=== PATIENT | male | born 1940 | race African-American/Black ===

== ENCOUNTER 2024-04-13 15:03 | Inpatient (IN) | payer OTHER ==
[~2024-04-13] VITALS: Ht 170.2 cm; Wt 50.3 kg
[2024-04-13] MEDS: SODIUM CHLORIDE 0.9% 1000ML BAG (SEPSIS BOLUS) IV ONE (15:58)
[2024-04-13 16:27] LABS: PROTHROMBIN TIME 11.4 sec (9.6-11.0)
[2024-04-13 16:31] LABS: CHLORIDE 108 mEq/L (98-107); POTASSIUM 3.3 mEq/L (3.5-5.1); SODIUM 144 mEq/L (136-145)
[2024-04-13 16:32] LABS: CALCIUM 8.8 mg/dL (8.7-10.4); CARBON DIOXIDE 26 mEq/L (21-32)
[2024-04-13 16:37] LABS: GLUCOSE 139 mg/dL (70-105); UREA NITROGEN BLOOD 15 mg/dL (9-23)
[2024-04-13 16:39] LABS: TROPONIN I HIGH SENSITIVITY 13 ng/L (3.0-53)
[2024-04-13 16:42] LABS: BASOPHILS % 0.8 % (0.0-2.0); EOSINOPHILS % 2.1 % (0.0-5.0); HEMATOCRIT. 32.6 % (42.0-52.0); HEMOGLOBIN. 10.9 g/dL (14.0-18.0); LYMPHOCYTES % 35.9 % (20.0-50.0); MEAN CORPUSCULAR HEMOGLOBIN 31.6 pg (28.0-32.0); MEAN CORPUSCULAR HGB CONC 33.3 g/dL (31.0-37.0); MEAN CORPUSCULAR VOLUME 95.1 fL (80.0-94.0); MEAN PLATELET VOLUME 11.1 fl (7.4-10.4); MONOCYTES % 11.1 % (2.0-8.0); NEUTROPHILS % 50.1 % (40.0-76.0); PLATELET 160 x1000/uL (130-400); RED BLOOD CELL COUNT 3.43 mill/uL (4.7-6.1); RED CELL DISTRIBUTION WIDTH 15.1 % (11.6-14.6); WHITE BLOOD COUNT 4.9 x1000/uL (4.5-11.0)
[2024-04-13] MEDS ORDERED: POTASSIUM CHLORIDE 20MEQ/PACKET PO ONE (18:15)
[2024-04-13] MEDS ORDERED: ACETAMINOPHEN 325MG TABLET PO PRN (20:15)
[2024-04-13] MEDS ORDERED: IPRATROPIUM/ALBUTEROL 0.5-3(2.5)MG/3ML NEB HHN PRN (20:15)
[2024-04-13] MEDS ORDERED: ONDANSETRON HCL 4MG/2ML INJ IV PRN (20:15)
[2024-04-13] MEDS ORDERED: DOCUSATE SODIUM 100MG CAPSULE PO PRN (20:15)
[2024-04-13] MEDS ORDERED: SODIUM CHLORIDE 0.9% 1,500 ML IV SCH (20:45)
[2024-04-13] MEDS: SODIUM CHLORIDE 0.9% 1,000 ML IV ONE (20:53)
[2024-04-13] MEDS: POTASSIUM CHLORIDE 20MEQ/PACKET PO NR (20:53)
[2024-04-14 04:00] VITALS: BP 144/96; PULSE 93; RESP 17; TEMP 36.50292; O2SAT 99
[2024-04-14 06:53] LABS: CHLORIDE 110 mEq/L (98-107); POTASSIUM 3.9 mEq/L (3.5-5.1); SODIUM 144 mEq/L (136-145)
[2024-04-14 06:54] LABS: CARBON DIOXIDE 24 mEq/L (21-32)
[2024-04-14 06:55] LABS: CALCIUM 9.1 mg/dL (8.7-10.4)
[2024-04-14 06:59] LABS: CREATININE 1.4 mg/dL (0.6-1.3); GLUCOSE 91 mg/dL (70-105)
[2024-04-14 07:00] LABS: UREA NITROGEN BLOOD 12 mg/dL (9-23)
[2024-04-14 07:01] LABS: ALANINE AMINOTRANSFERASE 35 IU/L (10-49); ALBUMIN 3.6 g/dL (3.2-4.8); ASPARTATE AMINOTRANSFERASE 59 IU/L (<34)
[2024-04-14 07:02] LABS: BILIRUBIN TOTAL 0.7 mg/dL (0.1-1.0); PROTEIN TOTAL 6.7 g/dL (6.0-8.3)
[2024-04-14 07:53] LABS: BASOPHILS % 0.9 % (0.0-2.0); EOSINOPHILS % 1.9 % (0.0-5.0); HEMATOCRIT. 37.4 % (42.0-52.0); HEMOGLOBIN. 12.3 g/dL (14.0-18.0); LYMPHOCYTES % 30.2 % (20.0-50.0); MEAN CORPUSCULAR HGB CONC 32.9 g/dL (31.0-37.0); MEAN CORPUSCULAR VOLUME 94.2 fL (80.0-94.0); MEAN PLATELET VOLUME 11.7 fl (7.4-10.4); MONOCYTES % 9.1 % (2.0-8.0); NEUTROPHILS % 57.9 % (40.0-76.0); PLATELET 162 x1000/uL (130-400); RED BLOOD CELL COUNT 3.97 mill/uL (4.7-6.1); RED CELL DISTRIBUTION WIDTH 14.7 % (11.6-14.6); WHITE BLOOD COUNT 5.7 x1000/uL (4.5-11.0)
[2024-04-14 12:50] VITALS: BP 134/90; PULSE 103; RESP 18; TEMP 36.44736; TEMP 36.4736; O2SAT 98
[2024-04-14 14:45] LABS: IRON 99 ug/dL (65-175)
[2024-04-14 14:48] LABS: TOTAL IRON BINDING CAPACITY 192 ug/dl (250-425)
[2024-04-14 15:04] LABS: FERRITIN 75 ng/mL (22-322); FOLIC ACID (FOLATE) SERUM 19.17 ng/mL (>5.38)
[2024-04-14 15:05] LABS: VITAMIN B12 SERUM 1112 pg/mL (211-911)
[2024-04-14 15:15] LABS: HEPATITIS B SURFACE ANTIGEN NEGATIVE (Negative)
[2024-04-14 15:37] LABS: HEPATITIS C AB NON REACTIVE (Neg) (Negative)
[2024-04-14 16:00] VITALS: BP 152/94; PULSE 79; RESP 16; TEMP 37.00296; O2SAT 97
[2024-04-14 20:00] VITALS: BP 180/102; PULSE 85; RESP 20; TEMP 36.50292; O2SAT 100
[2024-04-14] MEDS: CLONIDINE 0.1MG TABLET PO PRN (22:00)
[2024-04-14] MEDS: ACETAMINOPHEN 325MG TABLET PO PRN (22:01)
[2024-04-15] VITALS (8 sets, daily range): BP systolic 129–172; BP diastolic 78–97; PULSE 70–80; RESP 18–20; TEMP 35.78064–37.16964; O2SAT 96–100
[2024-04-15 06:06] LABS: BASOPHILS % 0.7 % (0.0-2.0); EOSINOPHILS % 2.3 % (0.0-5.0); HEMATOCRIT. 34.9 % (42.0-52.0); HEMOGLOBIN. 11.6 g/dL (14.0-18.0); LYMPHOCYTES % 41.3 % (20.0-50.0); MEAN CORPUSCULAR HEMOGLOBIN 31.5 pg (28.0-32.0); MEAN CORPUSCULAR HGB CONC 33.3 g/dL (31.0-37.0); MEAN CORPUSCULAR VOLUME 94.4 fL (80.0-94.0); MEAN PLATELET VOLUME 11.8 fl (7.4-10.4); MONOCYTES % 14.2 % (2.0-8.0); NEUTROPHILS % 41.5 % (40.0-76.0); PLATELET 158 x1000/uL (130-400); RED BLOOD CELL COUNT 3.69 mill/uL (4.7-6.1); RED CELL DISTRIBUTION WIDTH 14.7 % (11.6-14.6)
[2024-04-15 06:13] LABS: CARBON DIOXIDE 27 mEq/L (21-32); CHLORIDE 107 mEq/L (98-107); POTASSIUM 3.4 mEq/L (3.5-5.1); SODIUM 142 mEq/L (136-145)
[2024-04-15 06:14] LABS: CALCIUM 9.2 mg/dL (8.7-10.4)
[2024-04-15 06:20] LABS: CREATININE 1.2 mg/dL (0.6-1.3); GLUCOSE 64 mg/dL (70-105); UREA NITROGEN BLOOD 13 mg/dL (9-23)
[2024-04-15] MEDS: POTASSIUM CHLORIDE 20MEQ TABLET SR PO NR ×2 (18:25)
[2024-04-15] MEDS ORDERED: COLC0.6T66 PO (21:51)
[2024-04-15] MEDS ORDERED: TAMSULOSIN PO (21:51)
[2024-04-15] MEDS ORDERED: ALLO300T2 PO (21:51)
[2024-04-15] MEDS ORDERED: NIFE-71 PO (21:51)
[2024-04-15] MEDS ORDERED: SIMV-46 PO (21:51)
[2024-04-15] MEDS ORDERED: METO-396 PO (21:51)
[2024-04-15] MEDS ORDERED: ASPI-1497 PO (23:47)
[2024-04-16] VITALS (8 sets, daily range): BP systolic 101–167; BP diastolic 64–100; PULSE 73–94; RESP 18–20; TEMP 36.28068–36.72516; O2SAT 97–100
[2024-04-16] MEDS ORDERED: MIRT-89 MT (12:59)
== END 2024-04-16 16:15 | disposition home or self-care (01) | DRG 684 ==
LOC: ER 15:03 → 5WST 18:04 → EDBEDREQSVC 18:11 → EDBEDREQ 18:11 → EDBEDREQTM 18:11 → 7WST 04-14 13:14
PROVIDERS: ADMIT Family Medicine Adult Medicine; ATTEND Family Medicine Adult Medicine
DX: N17.9 Acute kidney failure, unspecified (principal); I95.9 Hypotension, unspecified; I12.9 Hypertensive chronic kidney disease with stage 1 through stage 4 chronic kidney disease, or unspecified chronic kidney disease; E78.00 Pure hypercholesterolemia, unspecified; N18.9 Chronic kidney disease, unspecified; T50.995A Adverse effect of other drugs, medicaments and biological substances, initial encounter; R55 Syncope and collapse; Y92.89 Other specified places as the place of occurrence of the external cause; Z79.899 Other long term (current) drug therapy
CPT/HCPCS: 36415; 70551; 71045; 76770; 80048; 80053; 82607; 82728; 82746; 83540; 83550; 83605; 84484; 85025; 86705; 87340; 92610; 93005; 97116; 97162; 99285; C1893; J7030